=== PATIENT | female | born 1990 | race Caucasian/White ===

== ENCOUNTER 2016-10-05 15:49 | Outpatient (CLI) | payer OTHER | END 2016-10-05 22:55 | disposition home or self-care (01) | LOC: GENOP 15:49 | DX: O99.89 Other specified diseases and conditions complicating pregnancy, childbirth and the puerperium (principal); R10.9 Unspecified abdominal pain; Z3A.40 40 weeks gestation of pregnancy | CPT/HCPCS: 81001; G0463 ==